=== PATIENT | female | born 1990 | race Caucasian/White ===

== ENCOUNTER 2023-09-16 15:42 | Emergency (ER) | payer OTHER ==
[2023-09-16 16:01] VITALS: BP 119/74; PULSE 88; RESP 18; TEMP 98.2; BMI 30.7
== END 2023-09-16 16:55 | disposition home or self-care (01) ==
LOC: JER 15:42 → JERFT 15:42
PROC: 0XQQXZZ Repair Right Middle Finger, External Approach (ICD-10-PCS; principal; 2023-09-16)
DX: S61.212A Laceration without foreign body of right middle finger without damage to nail, initial encounter (principal); W26.0XXA Contact with knife, initial encounter
CPT/HCPCS: 99282-25